=== PATIENT | female | born 1940 | race Caucasian/White ===

== ENCOUNTER 2017-09-02 12:12 | Observation (INO) | payer OTHER ==
--- NOTE | 2017-09-02 12:25 | CPEKG ---
Heart Rate: 165 RR Interval: 364 QRSD Interval: 82 QT Interval: 288 QTC Interval: 477 QRS Holden: 25 T Wave Holden: 36 EKG Severity - ABNORMAL ECG - EKG Impression: ATRIAL FIBRILLATION WITH RAPID V-RATE EKG Impression: VENTRICULAR TRIGEMINY EKG Impression: ST DEPRESSION, PROBABLY RATE RELATED Electronically Signed By: Tien Forbes 02-Sep-2017 15:45:25
--- NOTE | 2017-09-02 12:35 | EDPHY ---
H & P Time Seen by Provider: 09/02/17 12:32 HPI/ROS: Chief complaint. Palpitations HPI. Patient is 76-year-old female here with atrial flutter. The patient has had previous ablation is. She has had previous atrial fib and flutter. She is on Eliquis. She was wearing an event monitor which showed that she went into atrial flutter from normal sinus rhythm at 9:30 a.m. This morning. She is somewhat weak and lightheaded but does not have chest discomfort or trouble breathing. She has had similar symptoms before. She is not ill. ROS Constitutional. Weakness Eyes. no problems with vision ENT. no sore throat, no nasal drainage Cardiovascular. Irregular rhythm Respiratory. no shortness of breath, no cough Abdominal. no abdominal pain, no nausea/vomiting, no diarrhea . no problems urinating MS. no calf pain/swelling, no neck/back pain, no joint pain Skin. no rash Lymph. no swollen glands Neuro. no headache, no dizziness, no difficulty walking or with speech Past Medical/Surgical History: Atrial flutter with ablation this Social History: , nonsmoker, no alcohol Smoking Status: Never smoked Physical Exam: General Appearance: Alert well-developed female moderate distress vital signs are stable Eyes: Pupils equal and round no pallor or injection. ENT, Mouth: Mucous membranes are moist. Respiratory: There are no retractions, lungs are clear to auscultation. Cardiovascular: Irregularly irregular rate and rhythm Gastrointestinal: Abdomen is soft and nontender, no masses, bowel sounds normal. Neurological: Awake and alert, sensory and motor exams grossly normal. Skin: Warm and dry, no rashes. Musculoskeletal: Neck is supple nontender. Extremities symmetrical, full range of motion. Psychiatric: Patient is oriented X 3, there is no agitation. Constitutional: Initial Vital Signs Temperature (C) 36.4 C 09/02/17 12:16 Heart Rate 76 09/02/17 12:16 Respiratory Rate 18 09/02/17 12:16 Blood Pressure 127/92 H 09/02/17 12:16 O2 Sat (%) 96 09/02/17 12:16 O2 Delivery Mode Room Air Allergies/Adverse Reactions: No Known Allergies Allergy (Unverified 09/02/17 12:13) Home Medications: Medication Instructions Recorded Acetaminophen [Tylenol 325mg (*)] 650 mg PO Q4 PRN 09/02/17 Apixaban [Eliquis] 5 mg PO BID@,09/02/17 Fluticasone Nasal [Flonase Nasal 2 sprays NASAL DAILY PRN 09/02/17 [place] (RX)] Furosemide [Lasix 20 MG (*)] 20 mg PO TUTHSA@06 09/02/17 [place]/Supplements -Info Only 1 ea PO DAILY 09/02/17 Metoprolol Succinate [Toprol Xl] 12.5 mg PO BID@09/02/17 Multivitamins [Multivitamin (*)] 1 each PO HS 09/02/17 Pravastatin Sodium 20 mg PO HS 09/02/17 Medical Decision Making - Diagnostics EKG Interpretation: EKG interpreted by me shows atrial fibrillation with normal axis. QRS is normal there is diffuse ST depression likely rate related. Occasional PVC. Ventricular response 165 Procedures: IV normal saline, monitor. Diltiazem bolus and drip with good rate control Procedure: Conscious sedation. Indication: Cardioversion I was asked by to perform sedation for cardioversion. The patient is an appropriate candidate to tolerate procedural sedation. The patient's vital signs and mental status are appropriate. The risks, benefits and alternatives of the sedation were discussed with the patient. The patient is ASA classification 2. The patient's Mallampati airway score was 1 and the patient did meet the 3-3-2 airway measurements. A time out was completed. The patient was sedated with propofol 80 mg. The patient was monitored with continuous pulse oximetry, property assessment monitor and end tidal CO2. There were no complications and no significant hypoxemia. I performed the sedation The total time I spent at the bedside during the procedural sedation was 20 minutes. The patient was examined after the procedural sedation and has returned to their pre-sedation baseline with normal vital signs and a normal examination. ED Course/Re-evaluation: Patient was cardioverted at 200, 300, 360 joules with brief returns to normal sinus rhythm and then fall back into atrial fibrillation/flutter. At award clerk's request I gave the patient amiodarone 150 mg IV and started the patient on a drip. She remained stable. Patient and I discussed treatment plan including recommendation for admission. She expresses understanding and agreement Differential Diagnosis: Atrial fibrillation that is resistant to cardioversion. Rate control has been obtained with diltiazem. No evidence for acute AK. Critical Care Time: Critical care time exclusive procedures 45 min - Data Points Laboratory Results: Laboratory Results 09/02/17 12:40 09/02/17 12:40 09/02/17 09/02/17 12:40 12:40 WBC 7.75 10^3/uL 10^3/uL (3.80-9.50) RBC 5.14 10^6/uL 10^6/uL (4.18-5.33) Hgb 15.0 g/dL g/dL (12.6-16.3) Hct 45.1 % % (38.0-47.0) MCV 87.7 fL fL (81.5-99.8) MCH 29.2 pg pg (27.9-34.1) MCHC 33.3 g/dL g/dL (32.4-36.7) RDW 13.1 % % (11.5-15.2) Plt Count 276 10^3/uL 10^3/uL (150-400) MPV 9.8 fL fL (8.7-11.7) Neut % (Auto) 57.3 % % (39.3-74.2) Lymph % (Auto) 27.7 % % (15.0-45.0) Pershing % (Auto) 10.3 % % (4.5-13.0) Eos % (Auto) 3.9 % % (0.6-7.6) Baso % (Auto) 0.5 % % (0.3-1.7) Nucleat RBC Rel Count 0.0 % % (0.0-0.2) Absolute Neuts (auto) 4.44 10^3/uL 10^3/uL (1.70-6.50) Absolute Lymphs (auto) 2.15 10^3/uL 10^3/uL (1.00-3.00) Absolute Monos (auto) 0.80 10^3/uL 10^3/uL (0.30-0.80) Absolute Eos (auto) 0.30 10^3/uL 10^3/uL (0.03-0.40) Absolute Basos (auto) 0.04 10^3/uL 10^3/uL (0.02-0.10) Absolute Nucleated RBC 0.00 10^3/uL 10^3/uL (0-0.01) Immature Gran % 0.3 % % (0.0-1.1) Immature Gran # 0.02 10^3/uL 10^3/uL (0.00-0.10) Sodium 143 mEq/L mEq/L (135-145) Potassium 4.1 mEq/L mEq/L (3.5-5.2) Chloride 104 mEq/L mEq/L (97-110) Carbon Dioxide 26 mEq/l mEq/l (22-31) Anion Gap 13 mEq/L mEq/L (8-16) BUN 20 mg/dL mg/dL (7-23) Creatinine 0.6 mg/dL mg/dL (0.6-1.0) Estimated GFR > 60 Glucose 93 mg/dL mg/dL (70-100) Calcium 9.3 mg/dL mg/dL (8.5-10.4) Troponin I < 0.012 ng/mL ng/mL (0.000-0.034) NT-Pro-B Natriuret Pep 268 pg/mL pg/mL (0-450) Medications Given: Discontinued Medications Amiodarone HCl (Amiodarone Hcl) 150 mg IV EDNOW ONE Stop: 09/02/17 13:52 Last Admin: 09/02/17 14:13 Dose: 150 mg Diltiazem HCl (Cardizem) 20 mg IV EDNOW ONE Stop: 09/02/17 13:16 Last Admin: 09/02/17 13:18 Dose: 20 mg Diltiazem HCl 125 mg/ Dextrose 125 mls @ 0 mls/hr IV EDNOW ONE; As Directed PRN Reason: Protocol Stop: 09/02/17 12:45 Last Admin: 09/02/17 13:27 Dose: Not Given Sodium Chloride (Ns) 1,000 mls @ 0 mls/hr IV EDNOW ONE; Wide Open PRN Reason: Protocol Stop: 09/02/17 12:45 Last Admin: 09/02/17 12:45 Dose: 1,000 mls Diltiazem/Dextrose (Diltiazem 125mg/125ml (Premix)) 125 mls @ 0 mls/hr IV EDNOW ONE; As Directed PRN Reason: Protocol Stop: 09/02/17 13:01 Last Admin: 09/02/17 13:26 Dose: 125 mls Amiodarone HCl (Amiodarone Hcl) 200 mls @ 0 mls/hr IV EDNOW ONE PRN Reason: As Directed Stop: 09/02/17 13:52 Last Admin: 09/02/17 14:26 Dose: 200 mls Propofol (Diprivan) 80 mg IVP EDNOW ONE Stop: 09/02/17 14:07 Last Admin: 09/02/17 13:47 Dose: 80 mg Departure - Departure Disposition: [facility] Acute Clinical Impression: Atrial fibrillation Qualifiers: Atrial fibrillation type: unspecified Qualified Code(s): I48.91 - Unspecified atrial fibrillation Condition: Fair
[2017-09-02] MEDS ORDERED: NS 1,000 ML IV ONE (12:44)
[2017-09-02] MEDS ORDERED: DILTIAZEM 125 MG in D5W 125 ML IV ONE (12:44)
[2017-09-02] MEDS ORDERED: DILTIAZEM 25 MG/5 ML VIAL IVP ONE (12:44)
[2017-09-02 12:51] LABS: PLATELET COUNT 276 10^3/uL (150-400)
[2017-09-02] MEDS ORDERED: DILTIAZEM HCL/D5W 125 ML IV ONE (13:00)
[2017-09-02] MEDS ORDERED: DILTIAZEM 50 MG/10 ML VIAL IV ONE (13:15)
[2017-09-02] MEDS ORDERED: PROPOFOL 200 MG/20 ML VIAL ONE (13:33)
[2017-09-02] MEDS ORDERED: AMIODARONE HCL 150 MG/3 ML VIAL IV ONE (13:51)
[2017-09-02] MEDS ORDERED: AMIODARONE HCL 200 ML IV ONE ×2 (13:51→14:49)
[2017-09-02] MEDS ORDERED: PROPOFOL 200 MG/20 ML VIAL IVP ONE (14:06)
--- NOTE | 2017-09-02 14:25 | GCON ---
[f rep st] CONSULTATION CARDIOLOGY CONSULTATION DATE OF CONSULTATION: 09/02/2017 CHIEF COMPLAINT: Atrial flutter with rapid ventricular rate and near-syncope x3 hours. HISTORY OF PRESENT ILLNESS: The patient is a 76-year-old woman with the following cardiac history. In July 2013, she developed atrial fibrillation and atrial flutter. She eventually had an atrial fibrillation and atrial flutter ablation done at [facility] in April of 2016. She was seen by 1 of my partners, Dr. Huertas, on August 16, 2017, as a new patient. She was put on a 3 0-day event monitor, which she started about 10 days ago. She had been feeling well until today when she started to notice a fast irregular heartbeat with near syncope. The event monitor showed she wa s in atrial flutter at 150 beats per minute. She stayed in this for about 2 or 3 hours without impro vement and came to the emergency room upon my instructions. She denies chest pain, TIA symptoms, syn cope, and shortness of breath. She was put into sedation with propofol and we attempted to cardiover t her x3, initially with a 200 joule synchronized, then 300 joules synchronized, and finally 360 joul e synchronized shock with AP biphasic pads. Each time with the shock, she would go into normal sinus rhythm for about 10 seconds and then go into recurrent atrial flutter at 150 beats per minute. She awoke from sedation with no neurological deficits. PAST MEDICAL HISTORY: Paroxysmal atrial fibrillation, paroxysmal atrial flutter, and hyperlipidemia. PAST SURGICAL HISTORY: AFib and atrial flutter ablation in April of 2016. MEDICATIONS: Eliquis 5 mg twice daily, Lasix 20 mg every other day, pravastatin 20 mg q.h.s., and me toprolol tartrate 12.5 mg b.i.d. ALLERGIES: No known drug allergies. SOCIAL HISTORY: Patient is . She denies tobacco and alcohol intake. FAMILY HISTORY: Unremarkable for premature coronary artery disease. REVIEW OF SYSTEMS: Patient reports no recent fevers, chills, cough, or hemoptysis. She has no GI bl eed symptoms, such as hematemesis, melena, or bright red blood per rectum. Rest of 10-point review o f systems is negative. PHYSICAL EXAMINATION: VITAL SIGNS: Afebrile, pulse 150, blood pressure 122/105, respirations 20. G ENERAL: A normal-appearing woman in no acute distress without chest pain or use of accessory respira tory muscles. EYES: Pupils equal and reactive to light. ENT: Oral mucosa with no cyanosis. NECK: Jugular venous pressure to 7 cm. Carotid pulses 2+ bilaterally with no obvious bruits. No thyrome jerald noted. LUNGS: Clear to auscultation bilaterally without rales, rhonchi, or wheezing. HEART: T achycardic. Irregularly irregular rhythm with 1/6 nonradiating systolic murmurs and no S3. ABDOMEN: Soft and nontender. No guarding or rebound. No hepatosplenomegaly. No ascites. EXTREMITIES: 2+ peripheral pulses including femoral and pedal pulses. No edema noted. MUSCULOSKELETAL: No scolios is. NEURO: Normal affect and mood. Neck with no nuchal rigidity. SKIN: No bleeding or cyanosis. LABORATORY DATA: Sodium 143, potassium 4.1, chloride 104, bicarb 26, BUN 20, creatinine 0.6, glucose 93. White count 7.8, hematocrit 45, platelets 276,000; MCV 88. Troponin negative. NT proBNP level 268. IMPRESSION AND RECOMMENDATIONS: A 76-year-old woman with recurrent refractory atrial flutter with a rapid ventricular response. She is not having decompensated heart failure or angina. PLAN: 1. Would recommend she be admitted to the hospital and given 150 mg IV amiodarone slow bolus in the emergency room and then started on an amiodarone drip at 1 mg/minute for 6 hours and then 0.5 mg/flakita te thereafter. 2. Would continue home medications without change. 3. Will do a transthoracic echocardiogram in the morning to evaluate LV function and size of left at rium. 4. Hopefully, she will convert to sinus rhythm with the amiodarone antiarrhythmic. If not, will get an EP consult this hospitalization and consider repeat ablation. /[id number]/MODL
--- NOTE | 2017-09-02 14:30 | CPR ---
[f rep st] NONINVASIVE CARDIAC PROCEDURE REPORT DATE OF PROCEDURE: 09/02/2017 PROCEDURE PERFORMED: Electrical cardioversion with total of 3 shocks. INDICATIONS: Near syncope with atrial flutter and atrial fibrillation at a heart rate of 150 beats p er minute. CONSENT: Signed. Risks, benefits, and alternatives discussed with patient and her . They wi shed to proceed. MEDICATIONS USED DURING PROCEDURE: Propofol 80 mg IV per ER attending. TECHNICAL DIFFICULTIES: None. DESCRIPTION OF PROCEDURE: The patient initially was in atrial flutter with a ventricular rate of 150 beats per minute and a blood pressure of 122/105. She had been on Eliquis 10 at therapeutic dosing nonstop for the last 6 months. Initially, a 200 joule synchronized shock, then 300 joule synchronize d shock, and finally a 360 joule synchronized shock were done through AP biphasic pads. It would con vert her to sinus rhythm for about 10 seconds, and then she would go into recurrent atrial flutter or fibrillation. After the 3rd shock, she was still in atrial flutter at 145 beats per minute, and it was elected to stop at that time. She will be put on an amiodarone IV drip and admitted to the [facility] for further rhythm control. COMPLICATIONS: None. IMPRESSION: Unsuccessful cardioversion of atrial flutter into sustained sinus. PLAN: Patient will be admitted to the hospital with IV amiodarone 150 mg IV bolus and then a drip at 1 mg per minute for 6 hours and 0.5 mg per minute thereafter. /[id number]/MODL
[2017-09-02] MEDS ORDERED: FLUTICASONE NASAL 120 SPRAYS/16 GM MDI EACHNARE PRN (14:42)
[2017-09-02] MEDS ORDERED: ONDANSETRON DISINTEGRATING 4 MG TAB PO PRN (14:42)
[2017-09-02] MEDS ORDERED: ONDANSETRON 4 MG/2 ML VIAL IVP PRN (14:42)
[2017-09-02] MEDS ORDERED: ACETAMINOPHEN 325 MG TAB PO PRN (14:42)
[2017-09-02] MEDS ORDERED: DILTIAZEM 125 MG in D5W 125 ML IV SCH (15:00)
--- NOTE | 2017-09-02 15:20 | GHP ---
[f rep st] HISTORY AND PHYSICAL DATE OF ADMISSION: 09/02/2017 CHIEF COMPLAINT: Atrial fibrillation. HISTORY OF PRESENT ILLNESS: This is a 76-year-old female being admitted for rapid atrial fibrillatio n. Her history with atrial fibrillation goes back to 2013 after she had a TKA. A week or two later, she went into atrial fibrillation. She was cardioverted twice within a few weeks, stayed in sinus r hythm for about 2 years. After that, she reverted to atrial fibrillation. She was cardioverted agai n. She eventually underwent an ablation, which seemed to last for about a year. She recently change d cardiologists again after feeling palpitations. She is currently seeing Dr. Huertas. He gave her a n event monitor. She was called this morning by Dr. Hess telling her that she was in rapid AFib and should present to the emergency department. She endorsed symptoms of lightheadedness, palpitations, fatigue. No chest pain. No shortness of breath. She has been taking Eliquis 5 mg daily for the pa st few years. She has a small amount of lower extremity swelling, which is somewhat chronic for her. In the emergency department, she underwent 3 attempts at cardioversion, which reverted her briefly to normal sinus rhythm. However, she then quickly went back into atrial fibrillation. She has been started on amiodarone, as well as a diltiazem drip. PAST MEDICAL/SURGICAL HISTORY: 1. Atrial fibrillation, as above, with an ablation. 2. Bilateral TKA. 3. Hysterectomy. 4. Right arm orthopedic surgery. MEDICATIONS: Please see medication reconciliation. ALLERGIES: No known drug allergies. FAMILY HISTORY: No atrial fibrillation. SOCIAL HISTORY: She rarely drinks alcohol. She does not smoke. She is accompanied by her . REVIEW OF SYSTEMS: A 10-point review of systems is notable for chronic back pain. However, otherwis e negative except per HPI. PHYSICAL EXAM: VITAL SIGNS: Blood pressure 127/92, heart rate 76, respiration rate 18, sat 96% on r oom air. Temperature is 36.4. GENERAL: The patient is a very pleasant female who is resting comfor tably, lying in bed, in no acute distress. HEENT: Shows her to be normocephalic, atraumatic. CARDI OVASCULAR: Shows her to be irregularly irregular. She is tachycardic. There are no murmurs, rubs, or gallops. PULMONARY: Shows lungs clear to auscultation bilaterally. She is breathing comfortably . ABDOMINAL: Soft, nontender, nondistended. SKIN: Shows no rash: : Shows no H[place]. NEUROLOGI C: Shows her to be alert and oriented x3. She is moving all extremities. PSYCHIATRIC: Shows glen l mood and affect. LABS: CBC is unremarkable. Basic metabolic panel is normal. DATA: 1. I discussed this with Dr. Hess. Will admit to PCU on amiodarone as well as diltiazem drip. 2. I personally viewed and interpreted her EKG. This shows atrial fibrillation. There are 2 PVCs. She has some rate-related ST depression, most prominent in V1 through V5. IMPRESSION AND PLAN: Rapid atrial fibrillation. We will continue diltiazem drip, as well as amiodar one load per protocol. She will get an echocardiogram in the morning. Cardiology is currently follo wing. If she does not convert, would consider electrophysiology consultation on this hospitalization . We will continue her Eliquis. I am holding her metoprolol for now. We will continue her home dos e of furosemide as well. This is a high-risk diagnosis. /[id number]/MODL
--- NOTE | 2017-09-02 16:52 | CPEKG ---
Heart Rate: 71 RR Interval: 845 P-R Interval: 124 QRSD Interval: 100 QT Interval: 380 QTC Interval: 413 P [place]: 39 QRS [place]: -1 T Wave [place]: 16 EKG Severity - NORMAL ECG - EKG Impression: SINUS RHYTHM Electronically Signed By: Ekta Lane 03-Sep-2017 00:46:02
[2017-09-02] MEDS ORDERED: DILTIAZEM HCL/D5W 125 ML IV SCH (17:30)
[2017-09-02] MEDS: APIXABAN 5 MG TAB PO SCH (19:43)
[2017-09-02] MEDS ORDERED: AMIODARONE HCL IV ONE (20:00)
[2017-09-02] MEDS ORDERED: NS IV ONE (20:00)
[2017-09-02] MEDS ORDERED: PRAVASTATIN SODIUM 20 MG TAB PO SCH (21:00)
[2017-09-03 00:09] VITALS: TEMP 97.8
[2017-09-03] MEDS: APIXABAN 5 MG TAB PO SCH (06:12)
--- NOTE | 2017-09-03 10:06 | SOAPPROG ---
NASIMA Progress Note Assessment/Plan: Assessment: 76 y/o woman with PAF and paroxysmal aflutter with previous afib/aflutter ablation in 05/04 at [facility] with recurrent atrial arrhythmias last 24hrs. Self converted to NSR on IV amiodarone. No signs of CHF or angina. PLAN: 1)stop Amiodarone gtt now. 2)start Amiodarone 200mg PO bid. 3)change to Toprol XL 25mg PO qam. 4)Hydrocortisone OTC 1% cream BID to cardioversion sites on chest and back for next 3-5 days. 5)okay to discharge home today from cardiology standpoint. 6)our office will call patient tomorrow and get her in New Patient visit with one of our EP MDs to discuss repeat aflutter ablation and wean off Amiodarone in next 3-4 weeks. Plan: 09/03/17 10:03 Subjective: no complaints this morning. Denies CP, palpitations, PND, near syncope or TIA sx. Objective: Vital Signs Temp Pulse Resp BP Pulse Ox 36.6 C 71 16 118/63 92 09/03/17 07:27 09/03/17 07:27 09/03/17 07:27 09/03/17 07:27 09/03/17 07:27 Laboratory Results 09/03/17 05:25 09/02/17 09/03/17 09/04/17 05:59 05:59 05:59 Intake Total 1650 Output Total 1100 Balance 550 Physical Exam - Physical Exam General Appearance: alert EENT: PERRL/EOMI Neck: non-tender Respiratory: lungs clear Cardiac/Chest: regular rate, rhythm, systolic murmur (1/6 ZOEY heard), No edema, No gallop, No JVD Peripheral Pulses: 2+: carotid (R), carotid (L), femoral (R), femoral (L), dorsalis-pedis (R), dorsalis-pedis (L) Abdomen: normal bowel sounds, non-tender, No guarding Skin: warm/dry Extremities: non-tender, No pedal edema Neuro/Psych: oriented x 3 ICD10 Worksheet Patient Problems: Problems Problem Status Onset Atrial fibrillation Acute
[2017-09-03] MEDS ORDERED: AMIODARONE HCL 200 MG TAB PO SCH (10:15)
--- NOTE | 2017-09-03 10:43 | ECHO ---
[email or web address] [address] [address] Main: [phone] Fax: [email or web address] Echocardiogram Name: ARELI ALEXANDRA MR#: [id number] Study Date: 09/03/2017 Study Time: 09:24 AM Date of : 1940 Age: 76 year(s) Height: 165.1 cm (65 in.) Weight: 72.58 kg (160 lb.) BSA: 1.8 m2 Gender: Female Examination: Echo Indication: Atrial Fibrillation Image Quality: Adequate Contrast: Requested by: Keshawn Lynn BP: 118 mmHg/63 mmHg Heart Rate: Rhythm: Indication: Atrial Fibrillation Procedure Staff Software Test And Validation Engineer: Cheyanne Fulton RUST Reading Physician: Ramy Navarro MD Requesting Provider: Conclusions: No pericardial effusion. Normal left ventricular chamber size with ejection fraction of 62%. Moderate mitral regurgitation with left atrial enlargement. Mild to moderate tricuspid regurgitation with a right ventricular systolic pressure of 33 mm of mercury. Measurements: Chambers Valvular Assessment AV/MV Valvular Assessment TV/PV Normal Normal Normal Name Value Range Name Value Range Name Value Range Ao Chela (MM): 2.5 cm (2.2 cm-3.7 AV Vmax: 1.42 m/s (1 m/s-1.7 TR Vmax: 2.65 mm/s ( - ) cm) m/s) TR PGmax: 28 mmHg ( - ) IVSd (2D): 1.1 cm (0.6 cm-1.1 AV maxP mmHg ( - ) syst. PAP: 33 mmHg ( - ) cm) LVOT Vmax: 0.93 m/s (0.7 m/s-1.1 PV Vmax: 0.90 m/s (0.6 m/s-0.9 LVDd (2D): 4.4 cm (3.9 cm-5.3 m/s) m/s) cm) MV E Vmax: 0.77 m/s ( - ) PV PGmax: 3 mmHg ( - ) LVDs (2D): 3.2 cm (2.1 cm-4 MV A Vmax: 0.38 m/s ( - ) cm) MV E/A: 2.03 ( - ) LVPWd (2D): 0.8 cm ( - ) LVEF (BP): 62 % (>=55 %) RVDd(2D): 3.4 cm (1.9 cm-3.8 cmmm) Continued Measurements: Chambers Valvular Assessment AV/MV Valvular Assessment TV/PV Name Value Name Value Name Value LADs: 3.4 cm MV DecTime: 229 m/s CVP (est.): 5 mmHg LADs Lon.1 cm MV E' Septal: 0.09 m/s LA Area: 24.5 cm2 MV E/E' Septal: 8.90 LA Volume: 84 ml MV E/E' Lateral: 8.60 LA Volume Index: 46.7 ml/m2 MR Vena Contracta: 0.4 cm Patient: ARELI ALEXANDRA Study Date: 09/03/2017 Page 1 of 2 09:24 AM RA Area: 20.0 cm2 Additional Vessels Name Value Ao Ascendin.4 cm Findings: Left Ventricle: Normal size left ventricle. No LV hypertrophy. Normal global systolic LV function. EF is 62 %. No regional wall motion abnormality. Normal diastolic LV function. Right Ventricle: Normal size right ventricle. Normal RV function. Left Atrium: The left atrium is moderately dilated. Right Atrium: The right atrium is mildly to moderately dilated. Mitral Valve: The mitral valve is normal in appearance and function. There is mild thickening of the mitral valve leaflets. Moderate mitral valve regurgitation is present. Aortic Valve: The aortic valve is normal in appearance and function. There is no aortic valve regurgitation. No aortic valve stenosis is present. Tricuspid Valve: The tricuspid valve is normal in appearance and function. Mild to moderate tricuspid valve regurgitation. The pulmonary artery pressure is normal. Right ventricular systolic pressure measures 33mmHg. Pulmonic Valve: The pulmonic valve is normal in appearance and function. Mild pulmonic valve regurgitation is noted. Aorta: The aorta is normal. Normal size aortic root measuring 2.5 cm. Normal size ascending aorta measuring 3.4 cm. IVC: The IVC is normal sized. Pericardium: No pericardial effusion. (No Signature Object) Patient: ARELI ALEXANDRA Study Date: 09/03/2017 Page 2 of 2 09:24 AM [id number]
--- NOTE | 2017-09-03 10:55 | PDDCSUM ---
Discharge Summary Discharge Summary: DISCHARGE SUMMARY FOLLOW-UP ITEMS: Electrophysiology evaluation DATE OF ADMISSION: 09/02/2017 DATE OF DISCHARGE: 09/03/2017 DISCHARGE DIAGNOSES: 1. Paroxysmal atrial flutter with acute rapid ventricular response 2. Contact dermatitis CONSULTATIONS: Cardiology PROCEDURES / IMAGING: Follow-up EKG demonstrating a normal sinus mechanism Echo moderate MR, normal ejection fraction CHIEF COMPLAINT: Acute palpitations SUBJECTIVE: Patient is feeling well at time discharge, she has no symptoms PHYSICAL EXAM ON DISCHARGE: Systolic blood pressure is 100-120, heart 67, satting on room air, lungs are clear to auscultation bilaterally, heart rhythm is regular, no lower extremity edema LABS ON DISCHARGE: Troponin BNP both normal, creatinine 0.6, potassium 3.8 HOSPITAL COURSE BY PROBLEM: The patient presented with atrial flutter and acute rapid ventricular response, as noted on heart rhythm monitor, with some accompanying symptoms of palpitations. The patient had recently had a heart monitor placed and she was advised to present to [facility] for further evaluation by [facility]. The patient was placed on amiodarone loading drip, and after she chemically cardioverted to normal sinus mechanism, she was initiated on 200 mg twice daily. She will also be continued on metoprolol succinate, 25 mg daily , and will receive outpatient follow-up with electrophysiology. She did experience some contact dermatitis from her pads that were placed in the emergency department, we recommended 1% hydrocortisone cream until resolved. DISCHARGE MEDICATIONS: Please see official discharge medication reconciliation sheet in chart , continue home medications with the following adjustments, metoprolol succinate 25 mg once daily, amiodarone 200 mg twice daily, hydrocortisone 1% cream topically. DISCHARGE INSTRUCTIONS: Please follow up with [facility] electrophysiology this week, reconnect heart monitor for ongoing rhythm monitoring.
[2017-09-03 11:55] VITALS: BP 99/61; PULSE 70; RESP 12; O2SAT 93
[2017-09-04] MEDS ORDERED: METOPROLOL SUCCINATE XR 25 MG TAB PO SCH (09:00)
[2017-09-05] MEDS ORDERED: FUROSEMIDE 20 MG TAB PO SCH (06:00)
== END 2017-09-03 14:23 | disposition home or self-care (01) ==
LOC: INTOOBSV 13:57 → F2W 17:10
PROVIDERS: ADMIT Internal Medicine; ATTEND Internal Medicine
DX: I48.92 Unspecified atrial flutter (principal); I48.0 Paroxysmal atrial fibrillation; E78.5 Hyperlipidemia, unspecified; L25.9 Unspecified contact dermatitis, unspecified cause; Z96.653 Presence of artificial knee joint, bilateral
CPT/HCPCS: 93005; 93306; G0378; J0282; J2704; 96365

== ENCOUNTER → 2017-10-11 | Outpatient (CLI) | payer OTHER | LOC: CIMAGING 15:52 | PROVIDERS: ATTEND Internal Medicine Cardiovascular Disease | DX: J98.09 Other diseases of bronchus, not elsewhere classified (principal) | CPT/HCPCS: 71046-PO ==

== ENCOUNTER → 2018-10-17 | Outpatient (CLI) | payer OTHER | LOC: CIMAGING 09:56 | PROVIDERS: ATTEND Internal Medicine Cardiovascular Disease | DX: J42 Unspecified chronic bronchitis (principal); I48.91 Unspecified atrial fibrillation; Z79.899 Other long term (current) drug therapy | CPT/HCPCS: 71046-PO ==